=== PATIENT | female | born 1995 | race Caucasian/White ===

== ENCOUNTER 2018-07-12 15:08 | Emergency (ER) | payer OTHER ==
[~2018-07-12] VITALS: Wt 109.7 kg
--- NOTE | 2018-07-12 17:11 | ERD ---
ER Documentation Chief Complaint Chief Complaint L arm/ wrist swollen after hitting horse on Tuesday This patient is an otherwise healthy 22-year-old female presenting to the emergency department complaining of left hand and left wrist pain which began 3 days ago after injury. Patient was taking care of her sister's horse when the horse was "misbehaving" and she hit him with her left hand. Since then she has had worsening pain and swelling in the left hand and left wrist. Her current pain level is rated 8/10 in severity. She took aspirin at home with some reli ef. She states she is been working out and doing push-ups which has worsened her symptoms. She denies any other symptoms or injuries at this time. ROS All systems reviewed and are negative except as per history of present illness. Medications Home Meds Active Scripts Ibuprofen* (Motrin*) 600 Mg Tab, 600 MG PO Q6, #30 TAB Prov:STANISLAW GUTIERREZ PA-C 07/12/18 Allergies Allergies: Coded Allergies: No Known Allergy (Unverified , 07/12/18) PMhx/Soc Medical and Surgical Hx: pt denies Medical Hx FmHx Family History: No diabetes Physical Exam Vitals Vital Signs Date Temp Pulse Resp B/P (MAP) Pulse Ox O2 O2 Flow FiO2 Time Delivery Rate 07/12/18 99.1 87 20 140/94 99 15:48 (109) Physical Exam Const: No acute distress Head: Atraumatic Eyes: Normal Conjunctiva ENT: Normal External Ears, Nose and Mouth. Neck: Full range of motion. No meningismus. Resp: No respiratory distress. Skin: No petechiae or rashes Back: No midline or flank tenderness Ext: Tenderness to palpation over the radial and ulnar aspect of the left wrist with associated edema. Tenderness to palpation over the first metacarpal of the left hand with associated edema. Neur: Awake and alert Psych: Normal Mood and Affect Results [address] [address] Radiology Main Line: [phone] DIAGNOSTIC IMAGING REPORT Patient: DAIJA RODRIGUEZ : 1995 Age: 22 Sex: F MR #: [id number] DOS: 07/12/18 0000 Ordering MD: STANISLAW GUTIERREZ PA-C Location: [facility] Room/Bed: PROCEDURE: XR Left Hand and Wrist. CLINICAL INDICATION: Hand pain TECHNIQUE: 3 views of the left hand and 3 views of the left wrist COMPARISON: No prior studies are available for comparison. FINDINGS: Left hand: There is no acute fracture or dislocation. The joint spaces are maintained. No erosive changes are visualized. The soft tissues are unremarkable. Left wrist: There is no acute fracture or dislocation. The joint spaces are maintained. No erosive changes are visualized. The carpal bones are intact. The soft tissues are unremarkable. RPTAT: ZZ IMPRESSION: 1. No acute bony abnormality. .Adelina Marie MD, MD Date Time Electronically viewed and signed by .Adelina Marie MD, on 07/12/2018 17:57 .T/ CC: STANISLAW GUTIERREZ PA-C [id number] Procedures/MDM 22-year-old female presenting to the emergency department complaining of left hand and left wrist pain after injury. X-ray showed no significant acute Abnormalities. Full report interpreted by the radiologist may be viewed above. History, physical examination, work-up most consistent with left wrist sprain. Patient required Hieu wrap for compression of the left wrist.Splint Assessment: Neurovascularly intact post splint placement with good fit. Patient's extremity symptoms have stabilized while they have been evaluated in the department and are appropriate for outpatient follow up. No evidence of compartment syndrome, neurologic injury, vascular injury, open joint, open fracture, tendon laceration, or foreign body. No evidence of life-threatening pathology at time of discharge. Pt/family in agreement with discharge plan/diagnosis. Pt/family advised to return immediately with any new or worsening symptoms. Follow-up with primary care physician within the next 1-2 days. Disclaimer: Inadvertent spelling and grammatical errors are likely due to EHR/dictation software use and do not reflect on the overall quality of patient care. Also, please note that the electronic time recorded on this note does not necessarily reflect the actual time of the patient encounter. Departure Diagnosis: Primary Impression: Left wrist sprain Encounter type: initial encounter Qualified Codes: S63.502A - Unspecified sprain of left wrist, initial encounter Condition: Fair Additional Instructions: Follow up with your PCP within the next 1-3 days for a repeat evaluation. If you require a referral to a specialist, your Primary Care Provider may be able to provide this for you. In most patient cases, a referral is not required. If you have further questions regarding this matter, please ask your Primary Care Provider. Return the the emergency department immediately if symptoms worsen or change. If you have any questions regarding medications, ask your pharmacist or us before you leave. If any adverse reactions, occur while taking your medications, discontinue the treatment and return to the emergency department immediately. If any new or worsening symptoms, uncontrolled fevers, or other unexplained symptoms occur, return to the emergency department immediately. Take your medications as directed, and complete the entire course of treatment. STANISLAW GUTIERREZ PA-C July 12, 2018 17:11
[2018-07-12] MEDS ORDERED: IBUP-1542 PO (18:01)
[2018-07-12 19:12] VITALS: BP 127/78; PULSE 80; RESP 18
== END 2018-07-12 19:14 | disposition home or self-care (01) ==
LOC: FTE 15:08
DX: S63.502A Unspecified sprain of left wrist, initial encounter (principal); W55.89XA Other contact with other mammals, initial encounter; Y92.9 Unspecified place or not applicable
CPT/HCPCS: 73110; 73130; Z7502